=== PATIENT | male | born 1975 ===

== ENCOUNTER 2017-10-30 17:45 | Emergency (ER) | payer BC ==
[2017-10-30] MEDS ORDERED: MORPHINE IV ONE (18:13)
[2017-10-30] MEDS ORDERED: ZOFRAN IV ONE (18:13)
[2017-10-30] MEDS ORDERED: XYLOCAINE 1% 20 mL INFILTRATI ONE (18:15)
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
[2017-10-30 18:43] LABS: Basophils # (Auto) 0.1 K/mm3 (0.0-0.1); Basophils % (Auto) 1.1 % (0.0-1.8); Eosinophils # (Auto) 0.2 K/mm3 (0.0-0.4); Eosinophils % (Auto) 1.8 % (0.0-4.3); Hematocrit 42.9 % (35.5-45.6); Hemoglobin 14.5 gm/dl (11.8-15.2); Lymphocytes # (Auto) 1.5 K/mm3 (1.2-5.4); Lymphocytes % (Auto) 11.8 % (13.4-35.0); Mean Corpuscular HGB Conc 34 % (32-34); Mean Corpuscular Hemoglobin 31 pg (28-32); Mean Corpuscular Volume 91 fl (84-94); Monocytes # (Auto) 0.7 K/mm3 (0.0-0.8); Monocytes % (Auto) 5.3 % (0.0-7.3); Platelet Count 267 K/mm3 (140-440); Red Blood Count 4.72 M/mm3 (3.65-5.03); Red Cell Distribution Width 12.9 % (13.2-15.2)
[2017-10-30 19:03] LABS: BUN/Creatinine Ratio 13; Blood Urea Nitrogen 10 mg/dL (9-20); Calcium 8.8 mg/dL (8.4-10.2); Hemolysis Index 11
[2017-10-30] MEDS ORDERED: DILAUDID IV ONE ×2 (19:07→21:41)
[2017-10-30 19:38] LABS: Bacteria,Urine 1+ /HPF (Negative); Bilirubin,Urine NEG (Negative); Blood,Urine NEG (Negative); Color,Urine Yellow (Yellow); Mucus,Urine FEW /HPF; Protein,Urine <15 mg/dL mg/dL (Negative)
[2017-10-30] MEDS ORDERED: NACL 0.9% IR ONE (20:52)
[2017-10-30] MEDS ORDERED: NACL 0.9% 500 ML IR ONE (20:53)
--- NOTE | 2017-10-30 21:18 | Cat Scan Report ---
FINAL REPORT EXAM: CT HEAD/BRAIN WO CON HISTORY: fall with head injury TECHNIQUE: Standard unenhanced CT of the head at 5.0 millimeter axial increments. PRIORS: None. FINDINGS: The ventricular system is normal in size and configuration. There is no evidence for parenchymal volume loss. There is no evidence for mass lesion, mass effect, midline shift, acute intracranial hemorrhage, or acute ischemia/ infarction. No evidence for acute skull fracture is seen. There is extensive scalp swelling over the posterior left parietal region. Visualized paranasal sinuses are clear. IMPRESSION: Scalp swelling over the posterior left parietal region. No acute intracranial process noted.
--- NOTE | 2017-10-30 21:20 | Cat Scan Report ---
FINAL REPORT EXAM: CT CERVICAL SPINE WO CON HISTORY: fall with head injury TECHNIQUE: Standard CT cervical spine obtained at 2.5 millimeter axial increments. Coronal and sagittal reconstruction was also performed. PRIORS: None. FINDINGS: The vertebral bodies are intact. There is no evidence for acute fracture. There is no evidence for paravertebral soft tissue swelling. Alignment is maintained. IMPRESSION: Negative CT of the cervical spine.
--- NOTE | 2017-10-30 23:13 | Cat Scan Report ---
FINAL REPORT EXAM: CT ABDOMEN PELVIS W CON HISTORY: back pain s/p 10 foot fall TECHNIQUE: Standard enhanced CT of the abdomen and pelvis. Coronal and sagittal reconstruction was also performed. Delayed imaging through the kidneys and bladder was obtained. Contrast: Intravenous contrast given PRIORS: None. FINDINGS: Within the abdomen, the liver, spleen, pancreas, gallbladder, adrenal glands, and kidneys are unremarkable. No evidence for retroperitoneal or pelvic lymphadenopathy is seen. The bowel loops have normal caliber. No soft tissue mass, fluid collection, inflammatory change, or free air is seen within the abdomen or pelvis. The appendix is normal. Within the pelvis, the bladder is unremarkable. The prostate is normal. No evidence for mass or lymphadenopathy is seen in the pelvis. Images through the upper abdomen include the lung bases which are expanded and clear. Bony structures show superior endplate fracture involving L1. This has a acute features. No significant perivertebral swelling is seen. IMPRESSION: 1. no acute intra-abdominal process noted. 2. Acute fracture involving the superior endplate of L1.
[2017-10-30] MEDS ORDERED: K-DUR PO ONE (23:20)
[2017-10-30 23:23] VITALS: BP 100/55
[2017-10-30] MEDS ORDERED: ALUM-MAG HYDROX-SIMETH 200-200-20MG/5ML PO ONE (23:51)
[2017-10-31] MEDS ORDERED: ZOFRAN ODT ONE (00:06)
== END 2017-10-30 23:57 | disposition home or self-care (01) ==
LOC: ED 17:45
DX: S06.0X9A Concussion with loss of consciousness of unspecified duration, initial encounter (principal); S01.01XA Laceration without foreign body of scalp, initial encounter; W10.8XXA Fall (on) (from) other stairs and steps, initial encounter; Y93.89 Activity, other specified; Y92.89 Other specified places as the place of occurrence of the external cause; Y99.8 Other external cause status
CPT/HCPCS: 12002; 36415; 70450; 72125; 74177; 80048; 81001; 85025; 96374; 96375; 96376; 99284; J1170; J2270; J2405; Q9967; Q0162